=== PATIENT | male | born 1970 | race Two or more races ===

== ENCOUNTER 2016-12-04 19:21 | Emergency (ER) | payer SELFPAY ==
[2016-12-04 19:56] VITALS: TEMP 97.8
[2016-12-04 20:26] VITALS: BP 144/95; PULSE 75; RESP 17; O2SAT 99
--- NOTE | 2016-12-04 20:28 | ED PDOC ---
HPI: Nose Bleed Time Seen by Provider: 12/04/16 19:59 Chief Complaint (Nursing): ENT Problem Chief Complaint (Provider): nose bleed History Per: Patient, Family History/Exam Limitations: no limitations Onset/Duration Of Symptoms: Days (1), Waxing/Waning Current Symptoms Are (Timing): Gone Now Location Of Bleeding: Left Nare Symptoms Have Been: Episodic Associated Symptoms: Nasal Congestion Past Medical History Reviewed: Historical Data, Nursing Documentation, Vital Signs Vital Signs: Last Vital Signs Temp 97.8 F 12/04/16 19:54 Pulse 75 12/04/16 20:26 Resp 17 12/04/16 20:26 BP 144/95 H 12/04/16 20:26 Pulse Ox 99 12/04/16 20:26 - Medical History PMH: No Chronic Diseases - Surgical History Surgical History: No Surg Hx - Family History Family History: States: Unknown Family Hx - Living Arrangements Living Arrangements: With Family - Allergies Allergies/Adverse Reactions: Allergies Allergy/AdvReac Type Severity Reaction Status Date / Time No Known Allergies Allergy Verified 12/04/16 19:56 Review of Systems ROS Statement: Except As Marked, All Systems Reviewed And Found Negative ENT: Positive for: Nose Discharge (bled), Nose Congestion Physical Exam - Reviewed Nursing Documentation Reviewed: Yes Vital Signs Reviewed: Yes - Physical Exam Appears: Positive for: Well, Non-toxic, No Acute Distress Head Exam: Positive for: ATRAUMATIC, NORMAL INSPECTION, NORMOCEPHALIC Skin: Positive for: Normal Color Eye Exam: Positive for: Normal appearance ENT: Positive for: Nasal Congestion, Other (no active bleeding, no septal hematoma b/l) Cardiovascular/Chest: Positive for: Regular Rate, Rhythm Respiratory: Positive for: Normal Breath Sounds Gastrointestinal/Abdominal: Positive for: Normal Exam Extremity: Positive for: Normal ROM Neurologic/Psych: Positive for: Alert, Oriented - ECG O2 Sat by Pulse Oximetry: 99 - Progress ED Course And Treament: Patient/family educated on findings, discharged with instructions to follow uP PMD/ENT. Patient educated on techniques to stop bleeding. Advised nasal saline spray for congestion, Afrin PRN. Return to ED for worsneing/concerning symptoms. Disposition - Clinical Impression Clinical Impression: Nasal bleeding - Patient ED Disposition Is Patient to be Admitted: No Counseled Patient/Family Regarding: Diagnosis, Need For Followup - Disposition Referrals: [facility] [Outside] Disposition: Routine/Home Disposition Time: 20:29 Condition: GOOD Additional Instructions: Use nasal saline spray daily. Use Afrin as directed, as needed. Return to ED for worsening/concerning symptoms. Instructions: Nosebleed (ED) Print Language: RWANDAN
== END 2016-12-04 20:40 | disposition home or self-care (01) ==
LOC: H.ER 19:21 → EDBD 19:21 → H.ER 20:40
DX: R04.0 Epistaxis (principal)